=== PATIENT | female | born 1975 | race African-American/Black ===

== ENCOUNTER 2016-10-12 12:48 | Emergency (ER) | payer OTHER ==
[~2016-10-12 12:48] MED LIST: ATROVENT 0.02%2.5 ML INH; CRESTOR10 M1 PO; FLOVENT INH; LIDOCAINE VISCO20 ML PO; NORVASC5 M1 PO; PANTOPRAZOLE SO40 M1 PO; PREDNICOT20 MG PO; PREDNISONE 10MG10 M1 PO; PROAIR HFA8.5 GM INH; QVAR8.7 GM INH; SKELAXIN800 MG PO; TRAMADOL50 MG PO; VICODIN 5-3001 EACH PO
[2016-10-12 13:49] LABS: PT 11.5 SEC (9.4-12.5); PTT 31 SEC (25-37)
[2016-10-12 13:51] LABS: ABSOLUTE BASOPHIL COUNT 0 /CUMM (0.0-0.2); ABSOLUTE EOSINOPHIL COUNT 0.1 /CUMM (0.0-0.7); ABSOLUTE GRANULOCYTE CT 5.1 /CUMM (1.4-6.5); ABSOLUTE LYMPH COUNT 1.6 /CUMM (1.2-3.4); ABSOLUTE MONOCYTE COUNT 0.5 /CUMM (0.10-0.60); BASOPHIL % 0.1 % (0.0-2.0); EOSINOPHIL % 1.7 % (0-5); GRANULOCYTE % 69.5 % (42.2-75.2); HEMATOCRIT 37.8 % (37-47); MEAN CORPUSCULAR HGB 27.2 PG (27.0-31.0); MEAN CORPUSCULAR HGB CONC 33.3 G/DL (33.0-37.0); MEAN CORPUSCULAR VOLUME 81.7 FL (81.0-99.0); MEAN PLATELET VOLUME 9.1 FL (7.4-10.4); PLATELET COUNT 225 /CUMM (130-400); RBC DISTRIBUTION WIDTH 16.1 % (11.5-14.5); RED BLOOD CELL CT 4.63 /CUMM (4.20-5.40); WHITE BLOOD CELL COUNT 7.3 /CUMM (4.8-10.8)
--- NOTE | 2016-10-12 14:30 | ED GENERAL ADULT ---
History of Present Illness General Chief Complaint: General Adult Stated Complaint: CHEST PAINS, UNABLE TO LIFT ARM, BACK PAIN Source: patient Exam Limitations: no limitations Vital Signs & Intake/Output Vital Signs & Intake/Output Vital Signs Date Time Temp Pulse Resp B/P B/P Pulse O2 O2 Flow FiO2 Mean Ox Delivery Rate 10/12 1613 98.6 86 18 145/85 98 Room Air 10/12 1443 97.9 84 18 142/90 98 Room Air Allergies Coded Allergies: erythromycin base (Mild, HIVES 10/12/16) Reconcile Medications Albuterol Sulfate (Proair Hfa) 90 MCG HFA.AER.AD 2 PUF INH Q4-6 PRN PRN SHORTNESS OF BREATH (Reported) Amlodipine Besylate (Norvasc) 5 MG TABLET 1 TAB PO DAILY HTN (Reported) Beclomethasone Dipropionate (QVAR) 40 MCG/ACTUATION AER.W.ADAP 2 PUF INH BID ASTHMA (Reported) Rinse mouth after Fluticasone Propionate (Flovent Hfa) 44 MCG AER.W.ADAP 2 PUF INH BID ASTHMA ( Reported) Fluticasone/Vilanterol (Breo Ellipta 100-25 Mcg INH) 100 MCG-25 MCG/DOSE BLST.W.DEV 1 PUFF PO DAILY BREATHING PROBLEMS (Reported) Hydrochlorothiazide 25 MG TABLET 1 TAB PO DAILY WATER PILL (Reported) Pantoprazole Sodium 40 MG TABLET.DR 1 TAB PO DAILY GI (Reported) Rosuvastatin Calcium (Crestor) 10 MG TABLET 1 TAB PO DAILY CHOLESTEROL ( Reported) Tiotropium [place] (Spiriva Respimat) 1.25 MCG/ACTUATION MIST.INHAL 1 PUFF PO DAILY BREATHING PROBLEMS (Reported) Triage Note: PT TO TRIAGE WITH LEFT SIDED BACK PAIN THAT RADIATES INTO HER CHEST. PT STATES PAIN SHOOTS INTO HER LEFT ARM WHEN SHE MOVES IT. PT DENIES SOB. SKIN WARM AND DRY. PAIN PRESENT FOR APPROX 20 MINS Triage Nurses Notes Reviewed? yes : No Patient currently breastfeeds: No HPI: 40-year-old female with a history of hypertension, hyperlipidemia, sarcoid, cervical cancer with remission 5 years, polar disorder presenting with acute onset of left-sided chest pain that radiates into the left shoulder and upper back that began about 20 minutes prior to arrival when she woke up for her day. Reports sharp pain that is worse with movement, no alleviating factors. Tried anything for pain relief. Denies diaphoresis, nausea, vomiting, shortness of breath, lightheadedness, dizziness. Unable to recall any recent strenuous activity or trauma. (CHEYENNE STANTON,JUN) Past History Travel History Traveled to [place] past 21 day No Medical History Any Pertinent Medical History? 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 No (JUN QUINN PA-C) Review of Systems Review of Systems Constitutional: Denies: chills, fever, malaise, weakness. Respiratory: Denies: cough, short of breath, sputum production, wheezing. Cardiovascular: Denies: chest pain, palpitations. GI: Reports: no symptoms. Neurological/Psychological: Denies: numbness, paresthesia, tingling. (JUN QUINN PA-C) Physical Exam Physical Exam General Appearance: well developed/nourished, no apparent distress, tearful Head: atraumatic Respiratory: normal breath sounds, lungs clear, significant left-sided chest wall tenderness to palpation, no tenderness to palpation over the shoulder or upper back, un-restricted range of motion at the shoulder although patient reports CP with ranging, normal sensation, motor strength 5 out of 5 in upper extremity, distal pulses palpable Cardiovascular: regular rate/rhythm Extremities: normal inspection, no edema Core Measures ACS in differential dx? Yes CVA/TIA Diagnosis: No Severe Sepsis Present: No Septic Shock Present: No (JUN QUINN PA-C) Progress Differential Diagnoses I considered the following diagnoses in my evaluation of the patient: [MSK strain versus FL versus angina versus pneumonia versus pleural effusion versus pleurisy versus PE versus GERD] Plan of Care: Orders Procedure Date/time Status TROPONIN LEVEL 10/12 1259 Complete PARTIAL THROMBOPLASTIN TIME 10/12 1259 Complete PROTHROMBIN TIME 10/12 1259 Complete COMPREHENSIVE METABOLIC PANEL 10/12 1259 Complete CBC WITHOUT DIFFERENTIAL 10/12 1259 Complete EKG 10/12 1249 Active Laboratory Tests 10/12/16 1313: Anion Gap 10, Estimated GFR > 60, BUN/Creatinine Ratio 13.3, Glucose 94, Calcium 9.0, Total Bilirubin 0.5, AST 25, ALT 40, Alkaline Phosphatase 116, Troponin I < 0.01, Total Protein 7.1, Albumin 3.8, Globulin 3.3, Albumin/Globulin Ratio 1.2, PT 11.5, INR 1.10, APTT 31, CBC w Diff NO MAN DIFF REQ, RBC 4.63, MCV 81.7, MCH 27.2, RDW 16.1 H, MPV 9.1, Gran % 69.5, Lymphocytes % 22.5, Monocytes % 6.2, Eosinophils % 1.7, Basophils % 0.1, Absolute Granulocytes 5.1, Absolute Lymphocytes 1.6, Absolute Monocytes 0.5, Absolute Eosinophils 0.1, Absolute Basophils 0, PUBS MCHC 33.3 EKG shows normal sinus rhythm, troponin negative. All other labs within normal limits. Chest x-ray shows right upper lobe infiltrate, however patient has no fevers, no cough, production. Finding does not correlate clinically and will not treat at this time. Patient's pain is resolved after IM Toradol. Exam consistent with MSK strain. Instructed to continue ibuprofen and ice at home. (JUN QUINN PA-C) Initial ED EKG: normal sinus rhythm (JUN QUINN PA-C) Departure Departure Disposition: HOME OR SELF CARE Condition: Stable Clinical Impression Primary Impression: Chest pain Referrals: MELLY DIAS MD (PCP/Family) Additional Instructions: Use ibuprofen as needed for pain, ice for areas 3-4 times daily. Follow-up with primary care provider in 2-3 days for reevaluation. Return to the ED for any new or worsening symptoms. Departure Forms: Customer Survey General Discharge Information (JUN QUINN PA-C) PA/INSULATION APPLICATOR Co-Sign Statement Statement: ED Attending supervision documentation- [] I saw and evaluated the patient. I have also reviewed all the pertinent lab results and diagnostic results. I agree with the findings and the plan of care as documented in the PA's/INSULATION APPLICATOR's documentation. [X] I have reviewed the ED Record and agree with the PA's/INSULATION APPLICATOR's documentation. [] Additions or exceptions (if any) to the PAs/INSULATION APPLICATOR's note and plan are summarized below: [] (MARIO HAWLEY,DOMINIC) Critical Care Note Critical Care Note Critical Care Time: non-applicable (CHEYENNE STANTON,JUN)
[2016-10-12] MEDS ORDERED: FLOVENT HFA10.6 GM INH (14:50)
[2016-10-12] MEDS ORDERED: HYDROCHLOROTHIA25 M1 PO (14:51)
[2016-10-12] MEDS ORDERED: SPIRIVA RESPIMAT4 G1 PO (14:52)
[2016-10-12] MEDS ORDERED: BREO ELLIPTA 11 EACH PO (14:54)
--- NOTE | 2016-10-12 15:25 | RADIOLOGY REPORT ---
EXAMINATION: XR CHEST CLINICAL INFORMATION: Left-sided chest pain. Tenderness to palpation. COMPARISON: Chest x-ray 03/26/2014 TECHNIQUE: 2 views of the chest were obtained. FINDINGS: Left lung is clear. There is no pleural effusion or pneumothorax. No acute osseous abnormality. There is a subtle parenchymal opacity in the peripheral right upper lobe adjacent to the minor fissure on the PA view of chest which was not present on the prior exam of 03/26/2014. Possible subtle infiltrate. Clinically correlate. IMPRESSION: No acute osseous abnormality. No abnormality of the left hemithorax. There is a subtle peripheral right upper lobe opacity, possible infiltrate
[2016-10-12 16:13] VITALS: BP 145/85
== END 2016-10-12 16:13 ==
LOC: ERH 12:48
PROVIDERS: Emergency Medicine
DX: R07.9 Chest pain, unspecified (principal)
CPT/HCPCS: 93005; 93010; 96372; J1885

== ENCOUNTER 2016-10-16 10:53 | Emergency (ER) | payer OTHER ==
[~2016-10-16] VITALS: Ht 167.6 cm; Wt 113.4 kg
[~2016-10-16 10:53] MED LIST changes: +BREO ELLIPTA 11 EACH PO; +FLOVENT HFA10.6 GM INH; +HYDROCHLOROTHIA25 M1 PO; +SPIRIVA RESPIMAT4 G1 PO
--- NOTE | 2016-10-16 11:21 | ED CARDIAC/CP/PALPITATIONS ---
History of Present Illness General Chief Complaint: Chest Pain Stated Complaint: "PER PT CP" Source: patient Exam Limitations: no limitations Vital Signs & Intake/Output Vital Signs & Intake/Output Vital Signs Date Time Temp Pulse Resp B/P B/P Pulse O2 O2 Flow FiO2 Mean Ox Delivery Rate 10/16 1359 96.7 72 17 154/94 100 Room Air 10/16 1057 96.8 95 16 160/98 98 Room Air Allergies Coded Allergies: erythromycin base (Mild, HIVES 10/12/16) Reconcile Medications Albuterol Sulfate (Proair Hfa) 90 MCG HFA.AER.AD 2 PUF INH Q4-6 PRN PRN SHORTNESS OF BREATH (Reported) Cyclobenzaprine HCl 5 MG TABLET 1 TAB PO TIDPRN MUSCLE SPASM (Reported) Fluticasone/Vilanterol (Breo Ellipta 100-25 Mcg INH) 100 MCG-25 MCG/DOSE BLST.W.DEV 1 PUFF PO DAILY BREATHING PROBLEMS (Reported) Hydrochlorothiazide 25 MG TABLET 1 TAB PO DAILY WATER PILL (Reported) Meloxicam (Mobic) 15 MG TABLET 1 TAB PO DAILY PAIN/INFLAMMATION Methocarbamol (Robaxin) 500 MG TABLET 1 TAB PO TID PRN MUSCLE SPASMS Pantoprazole Sodium 40 MG TABLET.DR 1 TAB PO DAILY GI (Reported) Rosuvastatin Calcium (Crestor) 10 MG TABLET 1 TAB PO DAILY CHOLESTEROL ( Reported) Tiotropium [place] (Spiriva Respimat) 1.25 MCG/ACTUATION MIST.INHAL 1 PUFF PO DAILY BREATHING PROBLEMS (Reported) Triage Note: 40 Y/O FEMALE C/O L SIDED CHEST PAIN SINCE WEDNESDAY; INTERMITTENT SINCE ONSET. WAS EVALUATED IN ED FOR SAME AND DIAGNOSED WITH "SEVERE MUSCLE SPASM". HAS BEEN TAKING IBUPROPHEN WITH NO RELIEF. TAKEN FOR EKG Triage Nurses Notes Reviewed? yes Onset: Gradual Duration: worse persistent since (4 days) Timing: recent history Quality/Severity: moderate Location: left sided chest Radiation: no radiation Activities at Onset: none Modifying Factors: Worsens With: movement, palpation. : No Patient currently breastfeeds: No HPI: Patient is a 40-year-old female with history of hypertension, sarcoidosis, hyperlipidemia presenting to the emergency department with chief complaint of intermittent left-sided chest pain. She reports that she was seen and evaluated here in the emergency department 4 days ago for similar symptoms. She was diagnosed with severe muscle spasm and sent home with ibuprofen. She reports that there is no relief with ibuprofen. Pain is becoming more constant over the past couple days. Pain is achy and sharp and stabbing. It is located over the left chest is nonradiating. Denies any shortness of breath. No nausea or vomiting. Denies any jaw pain. No back pain. Pain is worse with movement. Denies any trauma. No heavy lifting. No numbness or tingling. Denies any lower extremity swelling. No recent travel. No history of blood clot. Does have history of cervical cancer in the past. (ROCHELLE OLIVER) Past History Travel History Traveled to [place] past 21 day No Medical History Any Pertinent Medical History? 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 No (ROCHELLE OLIVER) Review of Systems Review of Systems Constitutional: Reports: no symptoms. Comments Review of systems: See HPI, All other systems negative. Constitutional, no chills fever or weight loss HEENT: No visual changes no sore throat no congestion Cardiovascular: No palpitation , orthopnea or ankle swelling Skin, no jaundice no rashes Respiratory: No dyspnea cough sputum or hemoptysis GI: No nausea no vomiting : No dysuria No hematuria Muscle skeletal: no back pain, no neck pain, Neurologic: No numbness no confusion no pena Psych: No stress anxiety or depression,. Heme/endocrine: No bruising no bleeding no polyuria or polydipsia Immunology: No splenectomy or history of AIDS (ROCHELLE OLIVER) Physical Exam Physical Exam General Appearance: no apparent distress, alert, awake, comfortable, obese Cardiovascular: regular rate/rhythm Comments: obese person in no acute distress HEENT: Pupils equally round and reactive to light and accommodation. Nose is atraumatic. External auditory canal and Tympanic membranes clear. Pharynx normal. No swelling or edema. Neck: Supple, no lymphadenopathy, normal range of motion without pain or tenderness Back: Nontender, no CVA tenderness. Full range of motion Cardiovascular: Regular rate and rhythms no murmurs rubs or gallops, normal JVP Respiratory: Chest significantly tender to palpation over the left anterior chest pain provoked with movement of the left upper extremity. No respiratory distress.breath sounds clear to auscultation bilaterally Abdomen: Soft, obese, nontender nondistended, no appreciable organomegaly. Normal bowel sounds. No ascites Extremity: No edema, no calf tenderness to palpation, normal and equal pulses. Limited range of motion of left shoulder secondary to pain that is in the shoulder and in the chest on the left side. Full range of motion of right upper extremity. Neuro: Alert oriented x3 Skin: No appreciable rash on exposed skin, skin is warm and dry. Psych: Mood and affect is normal, memory and judgment is normal. Core Measures ACS in differential dx? Yes Severe Sepsis Present: No Septic Shock Present: No (MICHELE BELLO,ROCHELLE) Progress Differential Diagnosis: AMI, aortic dissection, CHF/pulm edema, hyperthyroid, musculoskeletal pain, myocarditis, pancreatitis, pericarditis, pneumonia, pneumothorax, pulmonary embolism Plan of Care: Orders Procedure Date/time Status Telemetry/Linux Consultant 10/16 1121 Active TROPONIN LEVEL 10/16 112 Complete HUMAN BETA HCG SCREEN 10/16 1121 Complete D-DIMER 10/16 1121 Complete COMPREHENSIVE METABOLIC PANEL 10/16 1121 Complete CBC WITHOUT DIFFERENTIAL 10/16 1121 Complete B-TYPE NATRIURETIC PEP (BNP) 10/16 1121 Complete EKG 10/16 1055 Active Laboratory Tests 10/16/16 1224: Anion Gap 10, Estimated GFR > 60, BUN/Creatinine Ratio 16.7, Glucose 99, Calcium 9.0, Total Bilirubin 0.3, AST 24, ALT 66 H, Alkaline Phosphatase 134 H, Troponin I < 0.01, Dwu-H-Dzaupntgrvv Pept 29.2, Total Protein 7.0, Albumin 3.8, Globulin 3.2, Albumin/Globulin Ratio 1.2, Total Beta HCG NEGATIVE, D-Dimer 231, CBC w Diff NO MAN DIFF REQ, RBC 4.44, MCV 81.3, MCH 27.2, RDW 16.3 H, MPV 9.1, Gran % 68.9, Lymphocytes % 22.6, Monocytes % 6.8, Eosinophils % 1.3, Basophils % 0.4, Absolute Granulocytes 4.1, Absolute Lymphocytes 1.3, Absolute Monocytes 0.4 , Absolute Eosinophils 0.1, Absolute Basophils 0, PUBS MCHC 33.4 Diagnostic Imaging: Viewed by Me: Radiology Read. Discussed w/RAD: Radiology Read. Radiology Impression: PATIENT: KIERA VELAZQUEZ PRESENT AGE: 40 PATIENT ACCOUNT NO: [id number] : 75 LOCATION: [facility] ORDERING PHYSICIAN: ROCHELLE BELLO SERVICE DATE: 10/16/16 EXAM TYPE: RAD - XRY-CHEST XRAY, PA AND LATERAL EXAMINATION: XR CHEST CLINICAL INFORMATION: Chest pain. COMPARISON: 02/20/2014 and 10/12/2016 TECHNIQUE: 2 views of the chest were obtained. FINDINGS: No acute findings compared to 10/12/2016. A linear opacity in the periphery of the right upper lobe projects over the right anterior third rib; this is unchanged and probably represents focal scar or atelectasis. There is no pulmonary consolidation, interstitial edema or pleural effusion. Cardiac silhouette is normal in size. The mediastinal and hilar contours are normal. No acute osseous abnormality. IMPRESSION: - No new cardiopulmonary findings compared to 10/12/2016. - Small linear, peripheral opacity in the right upper lung likely represents subsegmental atelectasis. No radiographic evidence of a rapidly developing/evolving pneumonia. - No evidence of cardiomegaly or congestive heart failure. Initial ED EKG: NSR (82 bpm) Prior EKG: unchanged Comments: PERC = 0 Wells = 0 Patient feeling much improved after IV Toradol. D-dimer is negative. Troponin is negative. Pending chest x-ray at this time. X-ray unchanged. Patient feeling much better. Patient started on meloxicam and Robaxin. Likely chest wall in nature. No longer tender to palpation over the left chest wall after medications. Follow-up with PCP. Patient nontoxic. Discussed with Dr. Davis and she agrees with plan. (MICHELE BELLO,ROCHELLE) Departure Departure Time of Disposition: 1347 Disposition: HOME OR SELF CARE Condition: Stable Clinical Impression Primary Impression: Chest wall pain Referrals: MELLY DIAS MD (PCP/Family) Additional Instructions: Follow-up with your primary care physician call TO MAKE appointment. Take meloxicam as prescribed to help with pain. Take Robaxin as directed to help with muscle spasms. Apply warm compresses to affected area. Return for worsening symptoms or concerns. Departure Forms: Customer Survey General Discharge Information Prescriptions: Current Visit Scripts Meloxicam (Mobic) 1 TAB PO DAILY #30 TAB Methocarbamol (Robaxin) 1 TAB PO TID PRN MUSCLE SPASMS #15 TAB (ROCHELLE OLIVER) PA/ZONE MAINTENANCE TECHNICIAN Co-Sign Statement Statement: ED Attending supervision documentation- [] I saw and evaluated the patient. I have also reviewed all the pertinent lab results and diagnostic results. I agree with the findings and the plan of care as documented in the PA's/ZONE MAINTENANCE TECHNICIAN's documentation. [X] I have reviewed the ED Record and agree with the PA's/ZONE MAINTENANCE TECHNICIAN's documentation. [] Additions or exceptions (if any) to the PAs/ZONE MAINTENANCE TECHNICIAN's note and plan are summarized below: [] (MARIO HAWLEY,DOMINIC) Critical Care Note Critical Care Note Critical Care Time: non-applicable (ROCHELLE OLIVER)
[2016-10-16 12:46] LABS: ABSOLUTE BASOPHIL COUNT 0 /CUMM (0.0-0.2); ABSOLUTE EOSINOPHIL COUNT 0.1 /CUMM (0.0-0.7); ABSOLUTE GRANULOCYTE CT 4.1 /CUMM (1.4-6.5); ABSOLUTE LYMPH COUNT 1.3 /CUMM (1.2-3.4); ABSOLUTE MONOCYTE COUNT 0.4 /CUMM (0.10-0.60); BASOPHIL % 0.4 % (0.0-2.0); EOSINOPHIL % 1.3 % (0-5); GRANULOCYTE % 68.9 % (42.2-75.2); HEMATOCRIT 36.1 % (37-47); MEAN CORPUSCULAR HGB 27.2 PG (27.0-31.0); MEAN CORPUSCULAR HGB CONC 33.4 G/DL (33.0-37.0); MEAN CORPUSCULAR VOLUME 81.3 FL (81.0-99.0); MEAN PLATELET VOLUME 9.1 FL (7.4-10.4); PLATELET COUNT 224 /CUMM (130-400); RBC DISTRIBUTION WIDTH 16.3 % (11.5-14.5); RED BLOOD CELL CT 4.44 /CUMM (4.20-5.40); WHITE BLOOD CELL COUNT 5.9 /CUMM (4.8-10.8)
[2016-10-16] MEDS ORDERED: CYCLOBENZAPRINE5 M2 PO (13:35)
[2016-10-16] MEDS ORDERED: ROBAXIN500 M1 PO (13:49)
[2016-10-16] MEDS ORDERED: MOBIC15 M1 PO (13:49)
[2016-10-16 13:59] VITALS: BP 154/94
--- NOTE | 2016-10-16 14:00 | RADIOLOGY REPORT ---
EXAMINATION: XR CHEST CLINICAL INFORMATION: Chest pain. COMPARISON: 02/20/2014 and 10/12/2016 TECHNIQUE: 2 views of the chest were obtained. FINDINGS: No acute findings compared to 10/12/2016. A linear opacity in the periphery of the right upper lobe projects over the right anterior third rib; this is unchanged and probably represents focal scar or atelectasis. There is no pulmonary consolidation, interstitial edema or pleural effusion. Cardiac silhouette is normal in size. The mediastinal and hilar contours are normal. No acute osseous abnormality. IMPRESSION: - No new cardiopulmonary findings compared to 10/12/2016. - Small linear, peripheral opacity in the right upper lung likely represents subsegmental atelectasis. No radiographic evidence of a rapidly developing/evolving pneumonia. - No evidence of cardiomegaly or congestive heart failure.
== END 2016-10-16 14:08 ==
LOC: ERH 10:53
PROVIDERS: Physician Assistant
DX: R07.89 Other chest pain (principal)
CPT/HCPCS: 93005; 93010; 96374; J1885